=== PATIENT | female | born 1945 | race Caucasian/White ===

== ENCOUNTER 2016-03-29 12:48 | Outpatient (CLI) | payer MEDICARE | END 2016-03-29 12:49 | disposition home or self-care (01) | DX: I25.10 Atherosclerotic heart disease of native coronary artery without angina pectoris (principal); Z79.899 Other long term (current) drug therapy; E03.9 Hypothyroidism, unspecified; R41.2 Retrograde amnesia ==

== ENCOUNTER 2016-04-17 16:55 | Outpatient (CLI) | payer MEDICARE ==
[2016-04-17] MEDS ORDERED: GADOBUTROL 7.5 MMOL/7.5 ML VIAL IVP ONE (18:03)
== END 2016-04-17 16:56 | disposition home or self-care (01) ==
DX: R41.2 Retrograde amnesia (principal); G93.89 Other specified disorders of brain
CPT/HCPCS: 70553; A9585

== ENCOUNTER 2017-02-06 12:51 | Outpatient (CLI) | payer MEDICARE ==
[2017-02-06 18:34] LABS: BASOPHILS % (AUTO) 0.4 %; EOSINOPHILS # (AUTO) 0.1 10^3/uL (0.0-0.7); EOSINOPHILS % (AUTO) 2.5 %; HCT - HEMATOCRIT 41.8 % (37.0-47.0); LYMPHOCYTES # (AUTO) 1.5 10^3/uL (1.5-3.5); LYMPHOCYTES % (AUTO) 28.2 %; MEAN CORPUSCULAR HEMOGLOBIN 33.7 pg (27.0-31.0); MEAN CORPUSCULAR HGB CONC 33.6 g/dL (32.0-36.0); MEAN CORPUSCULAR VOLUME 100.3 fL (81.0-99.0); MEAN PLATELET VOLUME 9.1 fL (7.9-10.8); MONOCYTES # (AUTO) 0.4 10^3/uL (0.0-1.0); MONOCYTES % (AUTO) 7.7 %; NEUTROPHILS # (AUTO) 3.4 10^3/uL (1.5-6.6); NEUTROPHILS % (AUTO) 61.2 %; RED BLOOD COUNT 4.16 10^6/uL (4.20-5.40); RED CELL DISTRIBUTION WIDTH 13.7 % (12.0-15.0); UNCORRECTED WHITE BLOOD COUNT 5.5 x10^3/uL; WHITE BLOOD COUNT 5.5 x10^3/uL (4.8-10.8)
[2017-02-06 18:48] LABS: ALBUMIN/GLOBULIN RATIO 1.2 (1.0-2.2); BILIRUBIN,TOTAL 0.8 mg/dL (0.2-1.0); CALCIUM 9.3 mg/dL (8.5-10.3); CREATININE 0.5 mg/dL (0.4-1.0); POTASSIUM 3.5 mmol/L (3.5-5.0); TOTAL PROTEIN 7.3 g/dL (6.7-8.2)
== END 2017-02-06 12:52 | disposition home or self-care (01) ==
LOC: LAB.F 12:51
PROVIDERS: ATTEND Internal Medicine
DX: E03.9 Hypothyroidism, unspecified (principal); F03.90 Unspecified dementia, unspecified severity, without behavioral disturbance, psychotic disturbance, mood disturbance, and anxiety
CPT/HCPCS: 36415; 80053; 84443; 85025

== ENCOUNTER 2017-04-14 05:02 | Outpatient (CLI) | payer MEDICARE | END 2017-04-14 05:03 | disposition critical access hospital (66) | LOC: EMS 05:02 | PROVIDERS: ATTEND Surgery | DX: S01.111A Laceration without foreign body of right eyelid and periocular area, initial encounter (principal); W19.XXXA Unspecified fall, initial encounter; Y92.092 Bedroom in other non-institutional residence as the place of occurrence of the external cause | CPT/HCPCS: A0425; A0429 ==

== ENCOUNTER 2017-04-14 05:15 | Emergency (ER) | payer MEDICARE ==
[2017-04-14 08:01] LABS: BILIRUBIN,URINE NEGATIVE (NEGATIVE); GLUCOSE, URINE (UA) NEGATIVE (NEGATIVE); KETONES,URINE (UA) NEGATIVE (NEGATIVE); LEUKOCYTE ESTERASE, URINE TRACE (NEGATIVE); NITRITE,URINE NEGATIVE (NEGATIVE); OCCULT BLOOD,URINE NEGATIVE (NEGATIVE); PROTEIN,URINE NEGATIVE (NEGATIVE); UROBILINOGEN,URINE 0.2 (NORMAL) E.U./dL (NORMAL)
[2017-04-14] MEDS ORDERED: LIDOCAINE 1% 2 ML VIAL ONE (08:01)
[2017-04-14 08:07] LABS: CLARITY,URINE CLEAR (CLEAR)
[2017-04-14 08:12] LABS: RBC,URINE 0-5 /HPF (0-5)
[2017-04-14 08:13] LABS: BACTERIA,URINE Moderate /HPF (None Seen); EPITHELIAL CELLS,UR FEW Transitional /HPF (<= Few); MUCUS,URINE Moderate Strands; SQUAMOUS EPITHELIAL CELL,UR RARE Squamous (<= Few)
--- NOTE | 2017-04-14 08:19 | ED Physician Documentation ---
PD HPI HEAD INJURY - Stated complaint Stated Complaint: FALL/EYE LAC - Chief complaint Chief Complaint: Laceration - History obtained from History obtained from: Patient, EMS - History of Present Illness Mechanism of head injury: Fell Where head injury occurred: Home Timing - onset: Enter time (429), Today Location of injury: Right, Front Quality of pain: Pain Associated symptoms: Amnesia (The patient has advanced dementia). No: LOC, AMS , Nausea / vomiting, Neck pain, Paresthesias, Seizures, Ear drainage, Nasal drainage Symptoms improve with: Rest Similar symptoms before: Diagnosis (laceration) Recently seen: Not recently seen - Additional information Additional information: 71-year-old female with advanced dementia in memory care has fallen out of bed this morning injuring her forehead on the right side with a large laceration.She does not know details of how or why the fall happened denies any pain in her neck has some pain in her right elbow but is able to move her arm normally. Review of Systems Unable to obtain: Dementia PD PAST MEDICAL HISTORY - Past Medical History Past Medical History: Yes Cardiovascular: Hypertension Respiratory: None Neuro: None Endocrine/Autoimmune: HyPOthyroidism, Other GI: GERD MIDDLE SCHOOL LIBRARIAN: Fibroids : None HEENT: None Psych: Anxiety Musculoskeletal: None Derm: None - Past Surgical History Past Surgical History: Yes /MIDDLE SCHOOL LIBRARIAN: section, Tubal ligation - Present Medications Home Medications: Ambulatory Orders Medication Instructions Recorded Confirmed Atorvastatin Calcium 40 mg PO DAILY 11/12/13 11/12/13 Clonazepam 0.5 mg PO DAILY PRN 11/12/13 11/12/13 Levothyroxine [Synthroid] 100 mcg PO QDAC 11/12/13 11/12/13 Nadolol 10 mg PO BID 11/12/13 11/12/13 Omeprazole [Prilosec] 20 mg PO DAILY 11/12/13 11/12/13 Raloxifene [Evista] 60 mg PO DAILY 11/12/13 11/12/13 Sertraline [Zoloft] 50 mg PO DAILY 11/12/13 11/12/13 Timolol 0.25% Ophth Drops 1 drops OPTH BID 11/12/13 11/12/13 [Timoptic 0.25% Ophth Drops] - Allergies Allergies/Adverse Reactions: Allergies Allergy/AdvReac Type Severity Reaction Status Date / Time Penicillins Allergy Unknown Verified 11/12/13 10:28 Sulfa (Sulfonamide Allergy Unknown Verified 11/12/13 10:28 Antibiotics) acetaminophen [From Percocet] AdvReac Nausea Verified 11/12/13 10:28 oxycodone AdvReac Unknown Unverified 04/14/17 05:27 oxycodone HCl * AdvReac Nausea Verified 11/12/13 10:28 [From Percocet] - Social History Does the pt smoke?: No Smoking Status: Never smoker Does the pt drink ETOH?: No Does the pt have substance abuse?: No - Immunizations Immunizations are current?: Yes PD ED PE NORMAL - Vitals Vital signs reviewed: Yes (Systolic hypertension mild) - General General: No acute distress, Well developed/nourished - HEENT HEENT: PERRL, EOMI, Other (There is a 3.5cm laceration over the right eyebrow laterally. The cut is deep to the facia of the frontalis. There is no foreing material in the wound. ) - Neck Neck: Supple, no meningeal sign, No bony TTP - Cardiac Cardiac: RRR, No murmur - Respiratory Respiratory: No respiratory distress, Clear bilaterally - Derm Derm: Normal color, Warm and dry, No rash - Extremities Extremities: No deformity, No edema, Other (The right arm is examined the shoulder is without point tenderness and with full range of motion the elbow is with some point tenderness but with good full range of motion with flexion extension supination pronation the wrist is without tenderness or swelling distal neurovascular components are intact. 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, No motor deficit, No sensory deficit, Normal speech Eye Opening: Spontaneous Motor: Obeys Commands Verbal: Confused GCS Score: 14 - Psych Psych: Normal mood, Normal affect Results - Vitals Vitals: Vital Signs - 24 hr 04/14/17 04/14/17 04/14/17 05:23 05:53 06:30 Temperature 36.7 C Heart Rate 73 72 76 Respiratory 17 17 16 Rate Blood Pressure 157/63 H 139/58 H 130/58 L O2 Saturation 100 100 98 04/14/17 04/14/17 06:32 07:25 Temperature Heart Rate 83 Respiratory 16 18 Rate Blood Pressure 149/69 H O2 Saturation 97 Oxygen O2 Source Room air - Labs Labs: Laboratory Tests 04/14/17 07:50 Urine Color YELLOW Urine Clarity CLEAR Urine pH 7.0 Ur Specific [place] 1.015 Urine Protein NEGATIVE Urine Glucose (UA) NEGATIVE Urine Ketones NEGATIVE Urine Occult Blood NEGATIVE Urine Nitrite NEGATIVE Urine Bilirubin NEGATIVE Urine Urobilinogen 0.2 (NORMAL) Ur Leukocyte Esterase TRACE H Urine RBC 0-5 Urine WBC 0-3 Ur Epithelial Cells FEW Transitional Ur Squamous Epith Cells RARE Squamous Urine Bacteria Moderate H Urine Mucus Moderate Strands Ur Microscopic Review INDICATED Urine Culture Comments INDICATED Procedures - Laceration (location) right eyebrow Length in cm: 3.5 Wound type: Linear, Clean, Other (deep lacerating the facia) Neurovascular status: Sensory intact, Motor intact, Vascular intact Anesthesia: Lidocaine 1% Wound Preparation: Hibiclens, Irrigated copiously NS, Wound explored, To the base Deep layer closure: Vicryl, size #-0 - enter number (6-0), # sutures - enter number (2 layers one to the facia and one subcuticular to reduce tension on the wound.) Skin layer closure: Nylon, Interrupted, Size #-0 - enter number (6-0) Other: Patient tolerated well, No complications, Neurovascular intact, Dressing applied, Tetanus booster given Complexity: Simple PD MEDICAL DECISION MAKING - ED course Complexity details: considered differential, d/w patient ED course: 71-year-old female with a fall out of bed has a laceration above her right eye. The wound is clean cleansed laceration is repaired the patient has some injury to her right upper extremity but has full normal range of motion without restriction and x-rays are not obtained. Departure - Departure Disposition: 01 Home, Self Care Clinical Impression: Laceration of eyebrow and forehead Qualifiers: Encounter type: initial encounter Laterality: right Qualified Code(s): S01.81XA - Laceration without foreign body of other part of head, initial encounter Condition: Stable Instructions: ED Laceration Facial Sutr Tape Follow-Up: Mario Serna MD [Primary Care Provider] - Comments: Sutures should be removed in 5 days.
[2017-04-14] MEDS ORDERED: BACITRACIN OINT TOP ONE (08:39)
[2017-04-14] MEDS ORDERED: TETANUS/DIPHTHERIA/PERTUSSIS 0.5 ML SYRINGE IM ONE (08:40)
[2017-04-14 09:43] VITALS: BP 139/65
== END 2017-04-14 09:43 | disposition home or self-care (01) ==
LOC: EDUNIT# → ED 05:15
DX: S01.81XA Laceration without foreign body of other part of head, initial encounter (principal); W06.XXXA Fall from bed, initial encounter; Y92.013 Bedroom of single-family (private) house as the place of occurrence of the external cause; Z23 Encounter for immunization; F03.90 Unspecified dementia, unspecified severity, without behavioral disturbance, psychotic disturbance, mood disturbance, and anxiety; I10 Essential (primary) hypertension; E03.9 Hypothyroidism, unspecified; K21.9 Gastro-esophageal reflux disease without esophagitis
CPT/HCPCS: 12013; 81001; 87086; 90471; 90715; 99283; 99284; A9270; 81003

== ENCOUNTER 2017-07-03 13:29 | Outpatient (CLI) | payer MEDICARE | END 2017-07-03 13:30 | disposition critical access hospital (66) | LOC: EMS 13:29 | PROVIDERS: ATTEND Surgery | DX: R53.83 Other fatigue (principal) | CPT/HCPCS: A0425; A0429 ==

== ENCOUNTER 2017-07-03 13:47 | Emergency (ER) | payer MEDICARE ==
[2017-07-03 15:16] LABS: ALBUMIN/GLOBULIN RATIO 1.1 (1.0-2.2); BILIRUBIN,TOTAL 0.7 mg/dL (0.2-1.0); CALCIUM 9.4 mg/dL (8.5-10.3); CREATININE 0.7 mg/dL (0.4-1.0); TOTAL PROTEIN 7.6 g/dL (6.7-8.2)
[2017-07-03 15:20] LABS: BASOPHILS % (AUTO) 0.7 %; EOSINOPHILS # (AUTO) 0.2 10^3/uL (0.0-0.7); EOSINOPHILS % (AUTO) 2.9 %; HGB - HEMOGLOBIN 13.8 g/dL (12.0-16.0); LYMPHOCYTES # (AUTO) 1.4 10^3/uL (1.5-3.5); LYMPHOCYTES % (AUTO) 20.8 %; MEAN CORPUSCULAR HEMOGLOBIN 33.8 pg (27.0-31.0); MEAN CORPUSCULAR HGB CONC 34.4 g/dL (32.0-36.0); MEAN PLATELET VOLUME 9.3 fL (7.9-10.8); MONOCYTES # (AUTO) 0.6 10^3/uL (0.0-1.0); MONOCYTES % (AUTO) 8.8 %; NEUTROPHILS # (AUTO) 4.6 10^3/uL (1.5-6.6); NEUTROPHILS % (AUTO) 66.8 %; PLT - PLATELET COUNT 198 10^3/uL (130-450); RED BLOOD COUNT 4.08 10^6/uL (4.20-5.40); RED CELL DISTRIBUTION WIDTH 14.1 % (12.0-15.0); WHITE BLOOD COUNT 6.8 x10^3/uL (4.8-10.8)
--- NOTE | 2017-07-03 15:24 | ED Physician Documentation ---
PD HPI ALTERED MENTAL STATUS - Stated complaint Stated Complaint: FALL, LETHARGY - Chief complaint Chief Complaint: Neuro - History obtained from History obtained from: Patient - History of Present Illness Timing - onset: Today, Yesterday (she had fallen and hit head couple days ago. Did not seem to have problems then, by report from [place]. Had less interaction and seemed tired yesterday. Less alert and poor interaction again this morning. No recent change in meds. No apparent illness.) Timing - details: Gradual onset, Waxing and waning Quality / character: Less responsive Associated symptoms: No: Fever, Headache, Dyspnea, Cough, NVD, Urinary sx ( though is typically incontinent of urine.) Contributing factors: Recent injury. No: Anticoagulated, New medication, Recent med change, Recent illness, Intoxicated [place] status: Ambulatory, Confused Similar symptoms before: Has not had sx before Recently seen: Not recently seen Review of Systems Unable to obtain: Dementia (still able to tell me symptoms in the moment, just not history) Constitutional: denies: Fever Nose: denies: Rhinorrhea / runny nose, Congestion Throat: denies: Sore throat Cardiac: denies: Chest pain / pressure Respiratory: denies: Cough GI: denies: Abdominal Pain, Vomiting, Diarrhea Musculoskeletal: denies: Extremity pain Neurologic: denies: Focal weakness, Numbness, Headache PD PAST MEDICAL HISTORY - Past Medical History Past Medical History: Yes Cardiovascular: Hypertension Respiratory: None Neuro: Dementia Endocrine/Autoimmune: HyPOthyroidism, Other GI: GERD SHIPPING SUPERVISOR: Fibroids : None HEENT: None Psych: Anxiety Musculoskeletal: None Derm: None - Past Surgical History Past Surgical History: Yes /SHIPPING SUPERVISOR: section, Tubal ligation - Present Medications Home Medications: Ambulatory Orders Medication Instructions Recorded Confirmed Atorvastatin Calcium 40 mg PO DAILY 11/12/13 11/12/13 Clonazepam 0.5 mg PO DAILY PRN 11/12/13 11/12/13 Levothyroxine [Synthroid] 100 mcg PO QDAC 11/12/13 11/12/13 Nadolol 10 mg PO BID 11/12/13 11/12/13 Omeprazole [Prilosec] 20 mg PO DAILY 11/12/13 11/12/13 Raloxifene [Evista] 60 mg PO DAILY 11/12/13 11/12/13 Sertraline [Zoloft] 50 mg PO DAILY 11/12/13 11/12/13 Timolol 0.25% Ophth Drops 1 drops OPTH BID 11/12/13 11/12/13 [Timoptic 0.25% Ophth Drops] - Allergies Allergies/Adverse Reactions: Allergies Allergy/AdvReac Type Severity Reaction Status Date / Time Penicillins Allergy Unknown Verified 04/14/17 09:03 Sulfa (Sulfonamide Allergy Unknown Verified 04/14/17 09:03 Antibiotics) acetaminophen [From Percocet] AdvReac Nausea Verified 04/14/17 09:03 oxycodone AdvReac Unknown Verified 04/14/17 09:03 oxycodone HCl * AdvReac Nausea Verified 04/14/17 09:03 [From Percocet] - Social History Does the pt smoke?: No Smoking Status: Never smoker Does the pt drink ETOH?: No Does the pt have substance abuse?: No - Immunizations Immunizations are current?: Yes - POLST Patient has POLST: No PD ED PE NORMAL - Vitals Vital signs reviewed: Yes - General General: No acute distress, Well developed/nourished. 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, No motor deficit, Normal speech Eye Opening: Spontaneous Motor: Obeys Commands Verbal: Oriented GCS Score: 15 Results - Vitals Vitals: Oxygen O2 Source Room air - Labs Labs: Laboratory Tests 07/03/17 07/03/17 07/03/17 14:57 14:57 14:57 WBC 6.8 RBC 4.08 L Hgb 13.8 Hct 39.9 MCV 98.0 MCH 33.8 H MCHC 34.4 RDW 14.1 Plt Count 198 MPV 9.3 Neut # 4.6 Lymph # 1.4 L [place] # 0.6 Eos # 0.2 Baso # 0.0 Absolute Nucleated RBC 0.00 Nucleated RBC % 0.1 Sodium 138 Potassium 3.0 L Chloride 98 L Carbon Dioxide 32 Anion Gap 8.0 BUN 20 Creatinine 0.7 Estimated GFR (MDRD) 82 L Glucose 93 Calcium 9.4 Total Bilirubin 0.7 AST 20 ALT 15 Alkaline Phosphatase 60 Troponin I < 0.04 Total Protein 7.6 Albumin 4.0 Globulin 3.6 Albumin/Globulin Ratio 1.1 Lipase 24 Urine Color Urine Clarity Urine pH Ur Specific [place] Urine Protein Urine Glucose (UA) Urine Ketones Urine Occult Blood Urine Nitrite Urine Bilirubin Urine Urobilinogen Ur Leukocyte Esterase Ur Microscopic Review Urine Culture Comments 07/03/17 17:40 WBC RBC Hgb Hct MCV MCH MCHC RDW Plt Count MPV Neut # Lymph # [place] # Eos # Baso # Absolute Nucleated RBC Nucleated RBC % Sodium Potassium Chloride Carbon Dioxide Anion Gap BUN Creatinine Estimated GFR (MDRD) Glucose Calcium Total Bilirubin AST ALT Alkaline Phosphatase Troponin I Total Protein Albumin Globulin Albumin/Globulin Ratio Lipase Urine Color YELLOW Urine Clarity CLEAR Urine pH 6.5 Ur Specific [place] 1.020 Urine Protein NEGATIVE Urine Glucose (UA) NEGATIVE Urine Ketones TRACE Urine Occult Blood NEGATIVE Urine Nitrite NEGATIVE Urine Bilirubin NEGATIVE Urine Urobilinogen 0.2 (NORMAL) Ur Leukocyte Esterase NEGATIVE Ur Microscopic Review NOT INDICATED Urine Culture Comments NOT INDICATED - Rads (name of study) head CT Radiology: Prelim report reviewed, EMP read contemporaneously (no acute changes) PD MEDICAL DECISION MAKING - ED course Complexity details: reviewed results, re-evaluated patient (seems okay now and is conversant. ), considered differential (consider mild concussive symptoms. CT normal. Labs are okay. No obvious infections. took awhile to get urine test ( nursing had to do I&O cath). ), d/w patient Departure - Departure Disposition: 01 Home, Self Care Clinical Impression: Altered awareness, transient Condition: Stable Record reviewed to determine appropriate education?: Yes Follow-Up: Mario Serna MD [Primary Care Provider] - Comments: Continue usual medications and treatments. Your lab tests appear normal here including CT scan, blood tests, urine test. Recheck if recurrent or worsening symptoms or problems. It may have been a mild concussive symptoms related to hitting her head. There is no signs of bleeding on the CT scan. Discharge Date/Time: 07/03/17 19:35
--- NOTE | 2017-07-03 16:09 | CT Preliminary Report ---
Exam: CT HEAD W/O IMPRESSION: 1. Generalized cerebral volume loss and ventriculomegaly appears similar to previous exam. No hemorrh age or mass effect. [facility] SITE ID: [id number]
--- NOTE | 2017-07-03 16:09 | CT Report ---
EXAM: CT HEAD EXAM DATE: 07/03/2017 03:57 PM. CLINICAL HISTORY: Head injury decreased LOC. COMPARISON: Brain MRI 04/17/2016. TECHNIQUE: Multiaxial CT images were obtained from the foramen magnum to the vertex. Reformats: Coron al. IV contrast: None. In accordance with CT protocol optimization, one or more of the following dose reduction techniques w ere utilized for this exam: automated exposure control, adjustment of mA and/or KV based on patient s ize, or use of iterative reconstructive technique. FINDINGS: Parenchyma: There is prominence in size of ventricles and sulci with findings of generalized cerebral volume loss. Negative for acute intracranial hemorrhage. No midline shift or mass effect. Extraaxial Spaces: No subdural or epidural collections identified. Ventricles: The ventricles appear enlarged but unchanged in size since previous MRI. Sinuses and Orbits: Imaged paranasal sinuses, orbits, and mastoids show no significant abnormality. Bones: No evidence of fracture or calvarial defect. Other: None. IMPRESSION: 1. Generalized cerebral volume loss and ventriculomegaly appears similar to previous exam. No hemorrh age or mass effect. [facility] Referring Provider Line: [phone] SITE ID: [id number]
[2017-07-03] MEDS ORDERED: POTASSIUM BICARB 25 MEQ TABLET PO STA (16:15)
[2017-07-03 18:10] LABS: BILIRUBIN,URINE NEGATIVE (NEGATIVE); GLUCOSE, URINE (UA) NEGATIVE (NEGATIVE); KETONES,URINE (UA) TRACE mg/dL (NEGATIVE); LEUKOCYTE ESTERASE, URINE NEGATIVE (NEGATIVE); NITRITE,URINE NEGATIVE (NEGATIVE); OCCULT BLOOD,URINE NEGATIVE (NEGATIVE); PH,URINE 6.5 PH (5.0-7.5); PROTEIN,URINE NEGATIVE (NEGATIVE); UROBILINOGEN,URINE 0.2 (NORMAL) E.U./dL (NORMAL)
[2017-07-03 18:16] LABS: CLARITY,URINE CLEAR (CLEAR)
[2017-07-03 19:07] VITALS: BP 113/52
== END 2017-07-03 19:35 | disposition home or self-care (01) ==
LOC: EDUNIT# → ED 13:47
DX: R40.4 Transient alteration of awareness (principal); F03.90 Unspecified dementia, unspecified severity, without behavioral disturbance, psychotic disturbance, mood disturbance, and anxiety; E03.9 Hypothyroidism, unspecified; I10 Essential (primary) hypertension; Z91.81 History of falling
CPT/HCPCS: 36415; 51701; 70450; 80053; 81003; 83690; 84484; 85025; 99284; A9270; 81001; 87086

== ENCOUNTER 2017-07-25 19:45 | Outpatient (CLI) | payer MEDICARE ==
--- NOTE | 2017-07-25 21:03 | CONSULTATION NOTE ---
Palliative Care Consultation - Referral Referring Provider: Dr Serna Time of Visit: 07/25/2017 Referral setting: Assisted living (Seen in home setting due to taxing and considerable effort required to leave the home due to immobility secondary to advanced end-stage Alzheimer's dementia. Also access to facility records is required.) Referral Reason: Weight loss/decline - Information Sources Records reviewed: RN notes reviewed, Previous records reviewed History/Review of Systems obtained from: Family, Nursing Exam limitations: Clinical condition (Advanced dementia; nonverbal) - History of Present Illness Brief History of Present Illness: This is a 72-year-old female with advanced dementia and a rapid decline in function and cognition over the past 3 years, with a significant decline since living at [facility] dementia unit since March 2017. -Comorbidities: Dementia with behaviors, weight loss, history of falls, GERD, hypertension, CAD, hypothyroidism, HLD -Patient is lying in bed during today's assessment. -She makes some eye contact and smiles without prompting. Otherwise, she gives minimal response to verbal and physical prompting, and is nonverbal, but at moments attempts to communicate, but cannot produce words. -Her reports word salad when she does verbalize. -She has a history of falls, has poor appetite and is losing weight and wasting away rapidly. -She was ambulatory in March when she arrived at [facility], but now is wheelchair bound. However, today was a turnaround, she was able to walk supported by a caregiver and a belt-harness. By the time of the palliative care visit, she was in bed. -Her is having difficulty processing her chino deterioration and the complex, emotional issues. Medical/Surgical History - Past Medical History Cardiovascular: reports: Hypertension Respiratory: reports: None Neuro: reports: Dementia, Other (history of falls) Endocrine/Autoimmune: reports: HyPOthyroidism GI: reports: GERD GOVERNMENT DOCUMENTS LIBRARIAN: reports: Fibroids : reports: None HEENT: reports: None Psych: reports: Anxiety Musculoskeletal: reports: None Derm: reports: None MRSA Hx?: No - Past Surgical History /GOVERNMENT DOCUMENTS LIBRARIAN: reports: section, Tubal ligation Social History - Living Situation Living arrangement: Assisted living (Seen in home setting due to taxing and considerable effort required to leave the home due to immobility and signficant functional and cognitive decline secondary to advanced, end-stage dementia.) Living Situation: With caregiver(s) Support System: She has been living at [facility] since March 2017. Prior to that she lived in [place] with her , who is a health underwriter. They have one daughter, Vishal Lemus in [place] [phone], and son in [facility] [place] Lemus [phone]. Family History - Family History Family History Comment/Other: Father and mother both , cause unknown. Medications/Allergies - Medications Home Medications: Ambulatory Orders Medication Instructions Recorded Confirmed Clonazepam 0.5 mg PO BID 11/12/13 07/26/17 Levothyroxine [Synthroid] 100 mcg PO QDAC 11/12/13 07/26/17 Raloxifene [Evista] 60 mg PO DAILY 11/12/13 07/26/17 Sertraline [Zoloft] 150 mg PO DAILY 11/12/13 07/26/17 Timolol 0.25% Ophth Drops 1 drops OPTH BID 11/12/13 07/26/17 [Timoptic 0.25% Ophth Drops] Acetaminophen 500 mg PO Q4H PRN MDD 3,000 mg 07/26/17 07/26/17 Amlodipine Besylate [Norvasc] 2.5 mg PO DAILY 07/26/17 07/26/17 Aspirin [Adult Aspirin] 81 mg PO DAILY 07/26/17 07/26/17 Memantine [Namenda] 5 mg PO BID 07/26/17 07/26/17 Metoprolol Succinate 25 mg PO BID 07/26/17 07/26/17 Potassium Chloride 10 meq PO DAILY 07/26/17 07/26/17 QUEtiapine [SEROquel] 25 mg PO BID 07/26/17 07/26/17 hydroCHLOROthiazide [Hydrodiuril] 12.5 mg PO DAILY 07/26/17 07/26/17 - Allergies Allergies/Adverse Reactions: Allergies Allergy/AdvReac Type Severity Reaction Status Date / Time Penicillins Allergy Unknown Verified 04/14/17 09:03 Sulfa (Sulfonamide Allergy Unknown Verified 04/14/17 09:03 Antibiotics) acetaminophen [From Percocet] AdvReac Nausea Verified 04/14/17 09:03 oxycodone AdvReac Unknown Verified 04/14/17 09:03 oxycodone HCl * AdvReac Nausea Verified 04/14/17 09:03 [From Percocet] Review of Systems - Constitutional Constitutional: reports: Fatigue, Weakness, Poor appetite, Weight loss (10% weight loss since 04/06/17. 5% loss since in two weeks. 89.8 lbs 07/18/17. 97.8 lbs 07/05/17. 95.6 lbs 05/29/17. 98 lbs 04/30/17. 100.2 lbs 04/06/17.) - Eyes Eyes: reports: Vision loss - Cardiovascular Cardiovascular: reports: Decr. exercise tolerance - Respiratory Respiratory: denies: Cough - Gastrointestinal Gastrointestinal: reports: Constipation - Genitourinary Genitourinary: reports: Incontinence - Musculoskeletal Musculoskeletal: reports: Transfer issues (requires extensive assistance) - Integumentary Integumentary: reports: Dryness - Neurological Neurological: reports: General weakness, Memory problems - Psychiatric Psychiatric: reports: Behavior disturbances (occasional mild behaviors) - Endocrine Endocrine: reports: Hypothyroidism - All Other Systems All Other Systems: reports: Other (Unable to obtain ROS from patient.) Physical Exam - Vital Signs Temperature: 97.6 F Pulse Rate: 85 O2 Saturation: 96 Blood Pressure: 124/60 (wrist cuff) - Physical Exam General Appearance: positive: No acute distress Eyes Bilateral: positive: No lid inflammation, Conjunctivae nml, No scleral icterus ENT: positive: Dry mucous membranes Neck: positive: Trachea midline Cardiovascular: positive: Regular rate & rhythm Respiratory: positive: No respiratory distress, Diminished throughout Skin: positive: Dryness Extremities: positive: No pedal edema Neurologic/Psychiatric: positive: Unintelligible speech (mostly nonverbal), Flat affect Palliative Care - POLST Patient has POLST: Yes POLST Status: DNR, Selective Treatment Anorexia: Severe (7-10) Performance Status: Patient as become non-ambulatory since living at [facility] with the exception of one episode of walking assisted by caregiver with belt-harness. Unable to sit without support of spine, requires full hilp with ADLs and transfers. Mild behaviors. Not bedridden; goes to dining room in wheelchair. Weight loss. FAST Dementia Scale: 7D Chris Index risk calculator: 14% risk of 6-month mortality This risk calculator is for custodial adults aged 65 and older. Risk calculators cannot predict the future for any one individual. Risk calculators give an estimate of how many people with similar risk factors will live and , but they cannot identify who will live and who will . - Palliative Care Discussion: Had an extensive discussion with surrounding his difficulty in processing his 's rapid decline, and anticipatory grief at the thought of losing her. I provided anticipatory guidance, but he is clearly overwhelmed. During our discussion about goals of care, it is clear that processing information and making decisions at this time is difficult, even overwhelming, for him. He has had a TBI which contributes to this difficulty. When discussing his wishes about future hospitalizations for her, his idea was that he could call Dr Serna at that time for his guidance and input. We were eventually able to settle on a POLST: DNR (he did have definite opinions on no CPR), and selective treatment. His may certainly qualify for Hospice now, with her FAST score and precipitous drop in weight, so I will make a follow up visit in the next 7-10 days to gauge progress or not (she had a slight rally with her recent ambulation), and open further discussion with him about transitioning to hospice, if indicated. Dr Serna has spoken to him about hospice, but he does not appear ready emotionally to take that step. He spoke about being at an important stage with his work, and how difficult it is juggling that with his daily trips to [facility]. He spoke about never wanting to be the situation of that of his , he would "never want it to get this far." At the same time he can't put his head around her not being there, he doesn't know how it would affect this work/project and his ability to complete it. He doesn't want to sound selfish (he doesn't) but it's obviously something critical for him and his attitude and acceptance of his 's condition, and of the prospect of losing her. Impression and Recommendations - Palliative Care Impression: This is a 72-year-old female with a very rapid decline functionally and cognitively secondary to advanced dementia and likely meets medical criteria for Hospice. She has had a recent small turnaround with ambulation, so will continue to monitor and plan another visit in the near future. Her is overwhelmed with the situation, and palliative care will continue to offer support in making the decision to transition to hospice. Recommendations/Counseling Done: Weight loss: 10% weight loss since 04/06/17. 5% loss in two weeks. 89.8 lbs 07/18. 97.8 lbs 07/05/17. 95.6 lbs 05/29/17. 98 lbs 04/30/17. 100.2 lbs 04/06/17. Ordered weekly weights for closer monitoring. Dementia with behaviors: Rapid decline. FAST 7d. She exhibited a mild turnaround, with recent ability to ambulate with belt harness assistance. Will monitor, plan follow up visit in 7-10 days. She had some aggressive behaviors in the past, swinging at her , prior to admission to [facility]. Can continue routine clonazepam BID and sertraline. HTN: Stable, BP today 124/60 on amlodipine, Hctz Advanced care planning: Did discuss goals, signed a POLST: DNR and selective treatment. Will follow up with a visit in next week or so to monitor progress or decline, and further the discussion with overwhelmed about transitioning to Hospice. He may also benefit from DATA BASE DESIGN ANALYST and fixed wing aircraft flight mechanic support, gently bring these up. Time Spent: 70 minutes were spent with more than 50% of the time spent on counseling, education, and coordination of care.
== END 2017-07-25 19:46 | disposition home or self-care (01) ==
LOC: PC 19:45
PROVIDERS: ATTEND Nurse Practitioner
DX: Z51.5 Encounter for palliative care (principal); G30.9 Alzheimer's disease, unspecified; F02.81 Dementia in other diseases classified elsewhere, unspecified severity, with behavioral disturbance; R63.4 Abnormal weight loss; Z91.81 History of falling; I10 Essential (primary) hypertension; Z99.3 Dependence on wheelchair; Z66 Do not resuscitate; Z79.899 Other long term (current) drug therapy